=== PATIENT | female | born 1975 | race Caucasian/White ===

== ENCOUNTER → 2019-04-15 | Outpatient (CLI) | payer BC ==
[~2019-04-15] MED LIST: ASPI-630 PO; CETI10TA22 PO; LORA1TAB PO; MULT1TAB52 PO; OMEP20TA8 PO; OXYC1TAB15 PO; SENN1TAB70 PO; TAMO20TA PO
[2019-04-15 14:02] LABS: BASO # 0.1 x10^3/uL (0.0-0.2); BASO % 1 % (0-3); EOS # 0.3 x10^3/uL (0.0-0.7); EOS % 3 % (0-3); HEMATOCRIT 40.9 % (36.0-47.0); HEMOGLOBIN 14.5 g/dL (12.0-15.5); LYMPH % 35 % (24-48); MEAN CORPUSCULAR HEMOGLOBIN 31 pg (25-35); MEAN CORPUSCULAR HGB CONC 35 g/dL (31-37); MEAN CORPUSCULAR VOLUME 86 fL (79-100); MONO # 0.5 x10^3/uL (0.0-1.1); MONO % 6 % (0-9); NEUT # 4.9 x10^3/uL (1.8-7.7); NEUT % 56 % (31-73); PLATELET COUNT 238 x10^3/uL (140-400); RED BLOOD COUNT 4.75 x10^6/uL (3.50-5.40); RED CELL DISTRIBUTION WIDTH 12.8 % (11.5-14.5); WHITE BLOOD COUNT 8.8 x10^3/uL (4.0-11.0)
[2019-04-15 14:29] LABS: ALBUMIN 3.8 g/dL (3.4-5.0); CALCIUM 9.4 mg/dL (8.5-10.1); CREATININE 0.6 mg/dL (0.6-1.0); GFR 109.1; POTASSIUM 3.6 mmol/L (3.5-5.1); TOTAL BILIRUBIN 0.5 mg/dL (0.2-1.0)
== END | disposition home or self-care (01) ==
LOC: SURGPAT 11:55
PROVIDERS: ATTEND Surgery
DX: Z01.818 Encounter for other preprocedural examination (principal); K81.9 Cholecystitis, unspecified
CPT/HCPCS: 36415; 80048; 82040; 82247; 85025

== ENCOUNTER 2019-04-18 10:49 | Day surgery (SDC) | payer BC ==
[~2019-04-18] VITALS: Ht 160 cm; Wt 97.5 kg
[~2019-04-18 10:49] MED LIST changes: +DEXAMETHASONE SOD PHOS 4 MG/ML VIAL ONE; +FAMOTIDINE 20 MG/2 ML VIAL ONE; +HYDROmorphone 2 MG/ML VIAL IV PRN; +IV RINGERS,LACTATED 1000ML 1,000 ML IV SCH; +MIDAZOLAM HCL/PF 2 MG/2 ML VIAL. ONE; +MORPHINE SULFATE 2 MG/ML VIAL. IV PRN; +ONDANSETRON PF 4 MG/2 ML VIAL. IV PRN; +ONDANSETRON PF 4 MG/2 ML VIAL. ONE; -OXYC1TAB15 PO; +PROCHLORPERAZINE 10 MG/2 ML VIAL. IV PRN; +PROPOFOL 0 ML IV ONE; +ROCURONIUM 50 MG/5 ML VIAL. ONE; -SENN1TAB70 PO; +fentaNYL PF VIAL 100 MCG/2 ML VIAL IV PRN; +fentaNYL PF VIAL 100 MCG/2 ML VIAL ONE
[2019-04-18] MEDS ORDERED: IOHEXOL 300 MG/ML 50 ML VIAL. ONE (11:23)
[2019-04-18] MEDS ORDERED: SURGICEL HEMOSTAT 4X8 EACH. ONE ×2 (11:23→12:25)
[2019-04-18] MEDS ORDERED: GLUCAGON,HUMAN RECOMBINANT 1 MG/ML VIAL. ONE ×2 (11:23→12:25)
[2019-04-18] MEDS ORDERED: BUPIVAC MPF-EPI 0.5%-1:200000 30 ML VIAL. ONE (11:23)
[2019-04-18] MEDS ORDERED: PROPOFOL 20 ML IV ONE (12:20)
[2019-04-18] MEDS ORDERED: ROCURONIUM 50 MG/5 ML VIAL. ONE (12:20)
[2019-04-18] MEDS ORDERED: FAMOTIDINE 20 MG/2 ML VIAL ONE (12:20)
[2019-04-18] MEDS ORDERED: DEXAMETHASONE SOD PHOS 4 MG/ML VIAL ONE (12:20)
[2019-04-18] MEDS ORDERED: fentaNYL PF VIAL 100 MCG/2 ML VIAL ONE ×2 (12:20→14:00)
[2019-04-18] MEDS ORDERED: ONDANSETRON PF 4 MG/2 ML VIAL. ONE (12:20)
[2019-04-18] MEDS ORDERED: MIDAZOLAM HCL/PF 2 MG/2 ML VIAL. ONE (12:20)
[2019-04-18] MEDS ORDERED: NEOSTIGMINE METHYLSULFATE 5 MG/5 ML SYRINGE. ONE (12:22)
[2019-04-18] MEDS ORDERED: GLYCOPYRROLATE 1 MG/5 ML VIAL. ONE (12:22)
[2019-04-18] MEDS ORDERED: SCOPOLAMINE 1.5MG PATCH. TD SCH (13:00)
[2019-04-18] MEDS ORDERED: DESFLURANE 31 TO 60 MINUTES IH ONE (13:42)
--- NOTE | 2019-04-18 13:47 | DISCH ---
DISCHARGE INSTRUCTIONS Condition on Discharge Condition on Discharge: Stable Activity After Discharge Activity Instructions for Disc: Activity as tolerated, Avoid exertion Driving Instructions after Dis: Do not drive (3-4 days) Diet after Discharge Diet after Discharge: Regular Wound Incision Care Wound/Incision Care: Ice to area for comfort Other wound/incision instructi: may shower Sunday Follow-Up Follow up with: Armando next week YOSEF LICONA MD Apr 18, 2019 13:47
--- NOTE | 2019-04-18 13:54 | PDOC ---
BRIEF OPERATIVE NOTE Date: Apr 18, 2019 Pre-Op Diagnosis gall bladder sludge Post-Op Diagnosis same Procedure Performed l/s cholecystectomy Surgeon Armando Astrobiologist Abena SAENZ Anesthesia Type: General Blood Loss 10cc IV Fluid 600cc Specimens Obtained GB Findings mildly edematous GB, fatty liver Complications none Operative Note Wk # [id number] YOSEF LICONA MD Apr 18, 2019 13:54
[2019-04-18] MEDS: fentaNYL PF VIAL 100 MCG/2 ML VIAL IV PRN ×2 (14:05→14:26)
--- NOTE | 2019-04-18 14:06 | OP ---
DATE OF SURGERY: 04/18/2019 PREOPERATIVE DIAGNOSIS: Gallbladder sludge. POSTOPERATIVE DIAGNOSES: Gallbladder sludge with acute cholecystitis. PROCEDURE: Laparoscopic cholecystectomy. SURGEON: Yosef Licona MD ANESTHESIA: General endotracheal. ESTIMATED BLOOD LOSS: 10 mL. INTRAVENOUS FLUIDS: 600. OPERATIVE FINDINGS: The liver was generous and rounded. The gallbladder was mildly edematous and distended. Visual inspection of the remainder of the abdomen failed to reveal obvious abnormalities. DESCRIPTION OF PROCEDURE: The patient brought to the operating suite, given a general endotracheal anesthetic. The abdomen was prepped and draped in a usual sterile fashion. A supraumbilical incision was made through the skin after localizing with 0.5% Marcaine with epinephrine. A 5 mm Visiport safely placed into the abdominal cavity, taking care to avoid injury to abdominal contents. Pneumoperitoneum established. Camera inserted. Inspection carried out with results as noted above. With the table in reverse Trendelenburg rolled to the left, the epigastric, midclavicular, and lateral ports were placed under direct vision. The gallbladder was retracted superolaterally and the cystic duct and cystic artery were identified. The duct was clipped on the gallbladder side. Attempts at threading the cholangiocatheter through the small duct were unsuccessful and as such, no cholangiograms were obtained. The duct was clipped x 2 and divided, taking care to avoid injury or compromise of the common duct. An anterior and posterior branch of the cystic artery were clipped and divided and the gallbladder freed from the bed with cautery dissection and placed in an EndoCatch bag. Hemostasis in the fossa obtained with cautery and a small piece of Surgicel. No bile leak seen. A 19-Italian round Duarte drain was brought through the epigastric port out the lateral port, sewn to the skin with a silk stitch and left in the subhepatic space for postoperative drainage. Table returned to level. Gallbladder delivered through the epigastric incision. Epigastric incision closed with interrupted 0 Vicryl suture. At 6 cm intra-abdominal pressure, no bleeding seen from the epigastric closure or from the midclavicular port site after its removal or from the drain site. Abdomen decompressed, camera removed, no bleeding seen. Skin incisions closed with subcuticular 4-0 Monocryl. Steri-Strips and sterile dressings applied. The patient awakened from her anesthetic and taken to the recovery room in satisfactory condition. YOSEF LICONA MD DR: Laura JOB#: [id number] / [id number]
[2019-04-18] MEDS ORDERED: OXYC1TAB15 PO (14:09)
[2019-04-18] MEDS ORDERED: SENN1TAB70 PO (14:10)
[2019-04-18] MEDS ORDERED: oxyCODONE/APAP 5/325 1 TAB TABLET ONE (14:35)
[2019-04-18] MEDS ORDERED: oxyCODONE/APAP 5/325 1 TAB TABLET PO ONE (14:45)
[2019-04-18 15:50] VITALS: BP 167/79
--- NOTE | 2019-04-21 14:07 | PATHOLOGY ---
[facility] Accession Number: [id number] . 01 Material submitted: . gallbladder - GALLBLADDER AND CONTENTS . 01 Clinical history: . Cholecystitis. . 02 Diagnosis: Gallbladder, laparoscopic cholecystectomy: - Cholesterolosis, focal. - Chronic cholecystitis. ([facility] 04/21/2019) [facility]/04/21/2019 . 02 Comment: There are no calculi identified within the gallbladder lumen or specimen container. There is no evidence of malignancy. ([facility] 04/21/2019) . 02 Electronically signed: . Jose E Stiles MD, Pathologist NPI- [id number] . 01 Gross description: . Received in formalin labeled "Ivel, Kye, gallbladder and contents" is an intact cholecystectomy specimen measuring 7.1 x 3.0 x 2.3 cm. The serosa is wills-green and smooth and the specimen is opened to reveal wills-green velvety mucosa without polyps or masses. The average wall thickness is 0.1 cm. Calculi are not present. Sawdust Drier sections of the fundus and body and the cystic duct margin are submitted in A1. ([facility]; 04/20/2019) SY/SYC . 02 Pathologist provided ICD-10: K80.10 . 02 CPT . 716013 Specimen Comment: A courtesy copy of this report has been sent to Specimen Comment: [phone], . Specimen Comment: Report sent to / DR ALEXIS Performed at: 01 [facility] [address], [place], [place] [id number] MD Jd Mireles MD Phone: [phone] Performed at: 02 [facility] [address], [place] [id number] MD Jose E Stiles MD Phone: [phone]
== END 2019-04-18 16:26 | disposition home or self-care (01) ==
LOC: SURG 10:49
PROVIDERS: ATTEND Surgery
DX: K80.10 Calculus of gallbladder with chronic cholecystitis without obstruction (principal); E78.5 Hyperlipidemia, unspecified; K21.9 Gastro-esophageal reflux disease without esophagitis; F32.9 Major depressive disorder, single episode, unspecified; Z85.3 Personal history of malignant neoplasm of breast; Z90.12 Acquired absence of left breast and nipple; Z98.51 Tubal ligation status; Z79.82 Long term (current) use of aspirin; Z98.890 Other specified postprocedural states; Z87.891 Personal history of nicotine dependence; Z72.89 Other problems related to lifestyle
CPT/HCPCS: 47562; 81025; A7015; J1100; J1956; J2250; J2405; J2704; J2710; J3010; J3490; J7030; Q9967; 88304; J1610